=== PATIENT | female | born 1955 | race Caucasian/White ===

== ENCOUNTER 2019-01-06 14:10 | Emergency (ER) | payer SELFPAY ==
[~2019-01-06] VITALS: Ht 160 cm; Wt 54.1 kg
[2019-01-06 14:17] VITALS: BP 106/59; PULSE 61; RESP 20; Ht 160 cm; Wt 54.1 kg
== END 2019-01-06 18:45 | disposition left against medical advice (07) ==
LOC: E/R 14:10
DX: Z53.21 Procedure and treatment not carried out due to patient leaving prior to being seen by health care provider (principal)